=== PATIENT | female | born 1960 | race Caucasian/White ===

== ENCOUNTER 2021-05-14 11:39 | Emergency (ER) | payer MEDICAID ==
[~2021-05-14] VITALS: Ht 160 cm; Wt 59.1 kg
[~2021-05-14 11:39] MED LIST: ONDA4TAB6 PO
[2021-05-14 12:15] VITALS: BP 137/75
[2021-05-14] MEDS ORDERED: SULF1TAB49 PO (12:19)
== END 2021-05-14 12:22 | disposition home or self-care (01) ==
LOC: ER 11:40
DX: S60.461A Insect bite (nonvenomous) of left index finger, initial encounter (principal); M79.645 Pain in left finger(s); Z79.2 Long term (current) use of antibiotics; W57.XXXA Bitten or stung by nonvenomous insect and other nonvenomous arthropods, initial encounter; Y93.89 Activity, other specified; Y92.89 Other specified places as the place of occurrence of the external cause; Y99.8 Other external cause status
CPT/HCPCS: 99283

== ENCOUNTER 2021-05-19 14:32 | Emergency (ER) | payer MEDICAID ==
[~2021-05-19] VITALS: Ht 160 cm; Wt 56.6 kg
[~2021-05-19 14:32] MED LIST changes: +SULF1TAB49 PO
[2021-05-19 14:39] VITALS: BP 100/63
== END 2021-05-19 14:54 | disposition home or self-care (01) ==
LOC: ER 14:32
DX: L98.499 Non-pressure chronic ulcer of skin of other sites with unspecified severity (principal); Z48.00 Encounter for change or removal of nonsurgical wound dressing
CPT/HCPCS: 99281